=== PATIENT | female | born 1980 | race Caucasian/White ===

== ENCOUNTER 2020-04-10 12:50 | Emergency (ER) | payer MEDICARE ==
[~2020-04-10] VITALS: Ht 160 cm; Wt 50.0 kg
--- NOTE | 2020-04-10 13:20 | NUR ---
PATIENT NOT WANTING TO TALK ABOUT HER SITUATION, I EXPLAINED TO HER THAT WE NEED TO KNOW INFO TO HELP HER. SHE STATED HER EX TOOK HER DAUGHTER BECAUSE HE DOESNT WANT TO PAY CHILD SUPPORT. SHE SAID SHE HASNT SEEN HER DAUGHTER IN 3 YEARS. SHE HAS A HX OF ANXIETY AND OCD FROM CHILDHOOD EXPERIENCE AND SAID SHE CANT COPE WITH THIS SITUATION AND DOESNT WANT TO LIVE. HAS NO PLAN. STATES SHE IS DISABLED.
[2020-04-10] MEDS ORDERED: diphenhydrAMINE 25mg capsule PO ONE (13:50)
[2020-04-10 13:54] LABS: BASOPHILS % (AUTO) 0.3 % (0-1); EOSINOPHILS % (AUTO) 0.4 % (0-6); HEMATOCRIT 39.9 % (35.0-45.0); HEMOGLOBIN 13.4 g/dl (12.0-16.0); LYMPHOCYTES # (AUTO) 1.2 X10'3 (1.1-4.8); LYMPHOCYTES % (AUTO) 24.8 % (21-51); MEAN CORPUSCULAR HEMOGLOBIN 30.7 PG (27.0-31.0); MEAN CORPUSCULAR HGB CONC 33.6 g/dL (33.0-36.5); MEAN CORPUSCULAR VOLUME 91.4 FL (78-98); MEAN PLATELET VOLUME 7.6 FL (7.4-10.4); MONOCYTES # (AUTO) 0.2 X10'3 (0-0.9); NEUTROPHILS # (AUTO) 3.3 X10'3 (1.8-7.7); NEUTROPHILS % (AUTO) 69.5 % (42-75); PLATELET COUNT 320 X10'3 (140-440); RED BLOOD COUNT 4.36 X10'6 (4.20-5.60); RED CELL DISTRIBUTION WIDTH 12.6 % (11.5-14.5); WHITE BLOOD COUNT 4.8 X10'3 (4.5-11.0)
[2020-04-10 14:05] LABS: URINE HCG NEGATIVE (NEG)
[2020-04-10 14:11] LABS: ALANINE AMINOTRANSFERASE 16 U/L (12-78); ALBUMIN 4.1 G/DL (3.4-5.0); ALBUMIN/GLOBULIN RATIO 1.2 (1.1-1.5); ALKALINE PHOSPHATASE 61 IU/L (46-116); ANION GAP 7 (8-16); ASPARTATE AMINO TRANSFERASE 16 U/L (10-37); BILIRUBIN,TOTAL 0.8 MG/DL (0.1-1.0); BLOOD UREA NITROGEN 17 MG/DL (7-18); BUN/CREATININE RATIO 20.2 (6.6-38.0); CHLORIDE 106 MMOL/L (99-107); CREATININE 0.84 MG/DL (0.40-0.90); GLUCOSE 100 MG/DL (70-104); POTASSIUM 3.7 MMOL/L (3.5-5.1); SODIUM 141 MMOL/L (135-145); TOTAL CARBON DIOXIDE 28.1 MMOL/L (24-32); TOTAL PROTEIN 7.4 G/DL (6.4-8.2); eGFR 76 ML/MIN
[2020-04-10 14:12] LABS: ETHANOL < 0.010 GM/DL (0.0-0.010)
[2020-04-10 14:23] LABS: URINE AMPHETAMINE SCREEN NEGATIVE (Neg); URINE BARBITUATE SCREEN NEGATIVE (Neg); URINE BENZODIAZEPINES SCREEN NEGATIVE (Neg); URINE CANNABINOID SCREEN POSITIVE (Neg); URINE COCAINE SCREEN NEGATIVE (Neg); URINE METHADONE SCREEN NEGATIVE (Neg); URINE OPIATE SCREEN NEGATIVE (Neg); URINE PHENCYCLIDINE SCREEN NEGATIVE (Neg)
[2020-04-10] MEDS ORDERED: FLUV50TA3 PO (15:18)
--- NOTE | 2020-04-10 16:36 | NUR ---
Pt. resting quietly on left side in bed. No signs of distress, respirations even and unlabored.
[2020-04-10 16:38] LABS: CLARITY,URINE SLIGHTLY CLOUDY (Clear); COLOR,URINE YELLOW (Yellow); GLUCOSE, URINE NEGATIVE (Neg); KETONES,URINE TRACE mg/dl (Neg); LEUKOCYTE ESTERASE ,URINE NEGATIVE (Neg); NITRITES, URINE NEGATIVE (Neg); OCCULT BLOOD,URINE NEGATIVE (Neg); PH,URINE 5.5 (4.8-8.0); PROTEIN,URINE TRACE mg/dl (Neg); UROBILINOGEN,URINE 0.2 E.U/dL (0.2-1.0)
[2020-04-10 16:40] LABS: UA COLLECTION TYPE CLN CATCH MIDSTREAM
[2020-04-10 16:50] LABS: BACTERIA,URINE FEW /HPF (Neg); CAL OXALATE CRYSTALS 3+ /HPF (NEGATIVE); MUCUS STRANDS MANY /LPF (Neg); RBC,URINE NONE SEEN /HPF (0-2); SQUAMOUS EPITHELIAL CELL,UR FEW /LPF (FEW); WBC,URINE 0-4 /HPF (0-4)
--- NOTE | 2020-04-10 16:50 | NUR ---
Packet Faxed to [facility]
--- NOTE | 2020-04-10 17:55 | NUR ---
Pt. given dinner meal tray, pt. eating meal bedside
--- NOTE | 2020-04-10 19:05 | NUR ---
[facility] at bedside with pt.
--- NOTE | 2020-04-10 19:52 | NUR ---
Pt is complaining of a headache, states she has excedrin in her bags. Pt requests tylenol and coffee as she is not allowed access to her bags. Informed pt that coffee is inappropriate at 1999.
[2020-04-10] MEDS: fluvoxamine 25 MG tablet PO SCH (21:30)
[2020-04-10] MEDS: acetaminophen 325mg tablet PO PRN (21:30)
--- NOTE | 2020-04-10 22:25 | NUR ---
RN from [facility] called to discuss pt., will call back with decision about if [facility] will accept pt.
--- NOTE | 2020-04-10 22:46 | NUR ---
Received call back from David Escobar. Per staff, pt. has been admitted by Cailin Moore at 2230 pending TSH results. Pt. to be transferred tomorrow morning. Addendum: 04/10/20 at 2251 by [facility] Called with same information
--- NOTE | 2020-04-10 23:51 | NUR ---
Pt. resting in bed quietly on right side, no signs of distress, respirations even and unlabored.
[2020-04-11] MEDS ORDERED: diphenhydrAMINE 25mg capsule PO ONE ×2 (01:40→20:00)
--- NOTE | 2020-04-11 09:18 | NUR ---
IS NOT GOING TO [facility] BECAUSE OF HER INSURANCE
[2020-04-11] MEDS: fluvoxamine 25 MG tablet PO SCH (20:29)
--- NOTE | 2020-04-12 01:26 | NUR ---
Shara in [place], [facility], calling for nurse to nurse ([phone]). He will send Covid screening form for us to fill out and fax back. Pt then to be presented to his MD.
[2020-04-12 06:23] VITALS: BP 117/84
[2020-04-12] MEDS: acetaminophen 325mg tablet PO PRN ×2 (06:38→13:37)
--- NOTE | 2020-04-12 10:56 | NUR ---
pt is lying in bed talking with her neighbor, no needs at this time
--- NOTE | 2020-04-12 14:36 | NUR ---
relieving RN for break, pt is being evaluated [facility]
--- NOTE | 2020-04-12 14:37 | NUR ---
pt has been accepted at [facility] in [place] at 1700
== END 2020-04-12 17:33 ==
LOC: ER 12:51 → CMPBEDREQ 04-12 19:57
DX: R45.851 Suicidal ideations (principal); F41.9 Anxiety disorder, unspecified; F12.90 Cannabis use, unspecified, uncomplicated; Z79.899 Other long term (current) drug therapy
CPT/HCPCS: 36415; 80053; 80305; 80320; 81001; 81025; 84443; 85025; 99285; Q0163